=== PATIENT | female | born 2000 | race Asian ===

== ENCOUNTER 2023-02-24 13:42 | Emergency (ER) | payer OTHER ==
[2023-02-24] MEDS ORDERED: Silver Sulfadiazine 1% Crm 50 GM Tube TOP SCH (14:45)
[2023-02-24] MEDS ORDERED: HYDROmorphone 0.5 MG/0.5 ML Syringe IM ONE (14:46)
[2023-02-24] MEDS ORDERED: Ketorolac 30 MG/ML SDV IM ONE (14:46)
== END 2023-02-24 15:50 | disposition home or self-care (01) ==
LOC: JD.ED 13:42
DX: T24.211A Burn of second degree of right thigh, initial encounter (principal); X11.8XXA Contact with other hot tap-water, initial encounter
CPT/HCPCS: 16020; 96372; 99283; A9270; J1170; J1885